=== PATIENT | male | born 1995 | race Two or more races ===

== ENCOUNTER 2020-08-30 11:38 | Emergency (ER) | payer MEDICAID, SELFPAY ==
[2020-08-30 12:58] VITALS: BP 139/76; PULSE 76; RESP 20; TEMP 36.6; O2SAT 100; BMI 20.9
--- NOTE | 2020-08-30 13:00 | HMH.EDUTC ---
[facility] Disposition Clinical Impression: Genital warts Disposition: Home, Self-Care Condition on Discharge: Good Instructions: DI for Genital Warts Additional Instructions: Please use condoms during sexual activity to avoid spread. Prescriptions: Imiquimod [Aldara] 1 each TP DIRECTED 120 Days #32 cream.pack Transmission Status: Pending to [facility] Referrals: PCP,No [Primary Care Provider] - Time of Disposition: 13:12 Medical Decision Making - [place] Inquiry Pt receiving controlled substance: No [facility] HPI - General Stated complaint: Rash Time Seen by Provider: 08/30/20 13:00 - History of Present Illness Provider Complaint: Rash in genital region. Several months. Also has spots on his chest. Had previous rash on chest in [place] and was treated for infection. Do not itch or hurt. Location: genitals Relieving factors: none Exacerbating factors: none Treatments prior to arrival: none - Related Data Previous Rx's Medication Instructions Recorded Imiquimod [Aldara] 1 each TP DIRECTED 120 Days #32 08/30/20 cream.pack [facility] History - Hepatitis A Screen Attestation statement:: This patient has been screened for Hepatitis A risk factors. I have reviewed the patient's past medical history: Yes ROS Obtained: Yes All systems reviewed & no additional complaints - Genitourinary Male Genitourinary: Reports genital lesions Physical Exam - General General appearance: alert, in no apparent distress - Eye Eye exam: Present: normal appearance, PERRL - Respiratory Respiratory exam: Present: normal lung sounds bilaterally - Cardiovascular Cardiovascular exam: Present: regular rate, normal rhythm - Expanded Exam exam: Present: lesions (warty lesions head of penis/foreskin) - Neurological Exam Neurological exam: Present: alert, oriented X3 - Psychiatric Psychiatric exam: Present: normal affect, normal mood - Skin Skin exam: Present: warm, dry, intact
[2020-08-30 13:22] VITALS: BP 139/76; PULSE 76; RESP 20; TEMP 36.6; O2SAT 97
== END 2020-08-30 13:24 | disposition home or self-care (01) ==
PROVIDERS: Emergency Provider Physician Assistant
DX: A63.0 Anogenital (venereal) warts (principal)
CPT/HCPCS: 99201